=== PATIENT | male | born 1960 | race Caucasian/White ===

== ENCOUNTER 2023-04-18 09:08 | Emergency (ER) | payer OTHER ==
[2023-04-18 09:15] VITALS: RESP 16; BMI 28.0
[2023-04-18 11:08] LABS: BASO % 0.2 % (0-2.0); EOS % 0.4 % (0-4.5); HEMATOCRIT 43.1 % (35.4-49); HEMOGLOBIN 14.8 GM/dL (11.7-16.9); LYMPH % 16.3 % (8-40); MCH 30.6 pg (25.7-33.7); MCHC 34.3 g/dl (32.0-35.9); MEAN CELL VOLUME 89.3 fl (80-96); MONO % 8.6 % (3.8-10.2); NEUT % 74.5 % (42.8-82.8); PLATELET COUNT 181 10^3/uL (134-434); RBC 4.83 M/mm3 (4.00-5.60); RDW 13.7 % (11.9-15.9); WHITE BLOOD COUNT 6.2 K/mm3 (4.0-10.0)
[2023-04-18 11:11] LABS: PH,URINE 6.5 (5.0-8.0); URINE APPEARANCE CLEAR; URINE BILIRUBIN NEGATIVE (NEGATIVE); URINE COLOR YELLOW; URINE GLUCOSE (UA) NEGATIVE (NEGATIVE); URINE KETONE NEGATIVE (NEGATIVE); URINE LEUK ESTERASE NEGATIVE (NEGATIVE); URINE NITRITE NEGATIVE (NEGATIVE); URINE PROTEIN NEGATIVE (NEGATIVE); URINE UROBILINOGEN 0.2 mg/dL (0.2-1.0)
[2023-04-18 11:25] LABS: POTASSIUM 3.8 mmol/L (3.5-5.1)
[2023-04-18 11:27] LABS: CALCIUM 9.4 mg/dL (8.5-10.1)
[2023-04-18 11:28] LABS: ALBUMIN 4.1 g/dl (3.4-5.0); BLOOD UREA NITROGEN 18.8 mg/dL (7-18)
[2023-04-18 11:31] LABS: CREATININE 1.2 mg/dL (0.55-1.3)
[2023-04-18 11:33] LABS: BILIRUBIN,TOTAL 0.5 mg/dL (0.2-1)
[2023-04-18 14:11] VITALS: BP 138/69; PULSE 64; TEMP 98
== END 2023-04-18 14:15 | disposition home or self-care (01) ==
LOC: JER 09:08
DX: R33.9 Retention of urine, unspecified (principal); R10.30 Lower abdominal pain, unspecified; R39.15 Urgency of urination
CPT/HCPCS: 36415; 80053; 81003; 85025; 87086; 99283-25

== ENCOUNTER 2023-10-04 07:00 | Emergency (ER) | payer OTHER ==
[2023-10-04 07:09] VITALS: BMI 29.0
[2023-10-04] MEDS ORDERED: ACETAMINOPHEN INJECTION 100 ML IVPB ONE (08:14)
[2023-10-04] MEDS: ACETAMINOPHEN 1000 MG/100 ML BAG IVPB ONE (08:18)
[2023-10-04] MEDS: SODIUM CHLORIDE 1,000 ML IV STA (08:21)
[2023-10-04 08:27] LABS: BASO % 0.2 % (0-2.0); HEMATOCRIT 42.3 % (35.4-49); HEMOGLOBIN 14.5 GM/dL (11.7-16.9); LYMPH % 5.1 % (8-40); MCH 30.2 pg (25.7-33.7); MCHC 34.3 g/dl (32.0-35.9); MEAN CELL VOLUME 88.3 fl (80-96); MEAN PLT VOLUME 8.2 fl (7.5-11.1); NEUT % 86.7 % (42.8-82.8); PLATELET COUNT 157 10^3/uL (134-434); RBC 4.79 M/mm3 (4.00-5.60); RDW 13.4 % (11.9-15.9); WHITE BLOOD COUNT 9.2 K/mm3 (4.0-10.0)
[2023-10-04 08:45] LABS: POTASSIUM 4.1 mmol/L (3.5-5.1)
[2023-10-04 08:47] LABS: ALBUMIN 3.6 g/dl (3.4-5.0); CALCIUM 8.6 mg/dL (8.5-10.1)
[2023-10-04 08:48] LABS: BLOOD UREA NITROGEN 12.7 mg/dL (7-18)
[2023-10-04 08:50] LABS: CREATININE 1.1 mg/dL (0.55-1.3)
[2023-10-04 08:52] LABS: BILIRUBIN,TOTAL 0.5 mg/dL (0.2-1); TOT PROT 6.9 g/dl (6.4-8.2)
[2023-10-04 09:13] LABS: EPI CELLS 14 /uL (0-25.1); HYALINE CASTS 3 /uL (0-3.1); URINE APPEARANCE CLEAR; URINE BACTERIA 12 /uL (0-1359); URINE BILIRUBIN NEGATIVE (NEGATIVE); URINE COLOR YELLOW; URINE GLUCOSE (UA) NEGATIVE (NEGATIVE); URINE KETONE TRACE (NEGATIVE); URINE LEUK ESTERASE 1+ (NEGATIVE); URINE NITRITE NEGATIVE (NEGATIVE); URINE PROTEIN TRACE (NEGATIVE); URINE RBC 51 /uL (0-23.9); URINE UROBILINOGEN 0.2 mg/dL (0.2-1.0); URINE WBC 139 /uL (0-25.8)
[2023-10-04] MEDS ORDERED: CEFTRIAXONE 1 GM/50 ML BAG ONE (10:33)
[2023-10-04] MEDS: CEFTRIAXONE 1,000 MG in DEXTROSE 5%-WATER - 50 ML IVPB ONE (10:38)
[2023-10-04] MEDS ORDERED: IBUPROFEN 400 MG TABLET (FP) PO ONE (11:16)
[2023-10-04] MEDS: IBUPROFEN 400 MG TABLET (FP) PO ONE (11:27)
[2023-10-04 11:30] VITALS: BP 144/80; PULSE 72; RESP 16; TEMP 100.5
== END 2023-10-04 11:31 | disposition home or self-care (01) ==
LOC: JER 07:00
PROC: 3E03329 Introduction of Other Anti-infective into Peripheral Vein, Percutaneous Approach (ICD-10-PCS; principal; 2023-10-04)
PROC: 3E033NZ Introduction of Analgesics, Hypnotics, Sedatives into Peripheral Vein, Percutaneous Approach (ICD-10-PCS; 2023-10-04)
DX: N43.3 Hydrocele, unspecified (principal); N30.00 Acute cystitis without hematuria
CPT/HCPCS: 36415; 76870-TC; 80053; 81003; 85025; 87040; 87086; 99284-25; J0131

== ENCOUNTER 2023-10-04 21:08 | Inpatient (IN) | payer OTHER ==
[2023-10-04 21:18] VITALS: BMI 25.8
[2023-10-04] MEDS ORDERED: FAMOTIDINE 20 MG/50 ML IVPB 20 MG/50 ML MG IVPB ONE (21:49)
[2023-10-04] MEDS ORDERED: ONDANSETRON 4 MG/2 ML VIAL ONE (21:49)
[2023-10-04] MEDS ORDERED: ACETAMINOPHEN INJECTION 100 ML IVPB ONE (21:49)
[2023-10-04] MEDS: SODIUM CHLORIDE 0.9% 500 ML INFUS.BAG IV ONE (22:09)
[2023-10-04] MEDS: ACETAMINOPHEN 1000 MG/100 ML BAG IVPB ONE (22:09)
[2023-10-04] MEDS: FAMOTIDINE 20 MG/50 ML IVPB 20 MG/50 ML MG IVPB ONE (22:10)
[2023-10-04] MEDS: ONDANSETRON 4 MG/2 ML VIAL IVPUSH ONE (22:10)
[2023-10-04 22:19] LABS: HEMOGLOBIN 14.5 GM/dL (11.7-16.9); MCH 30.7 pg (25.7-33.7); MCHC 35.3 g/dl (32.0-35.9); MEAN PLT VOLUME 8.5 fl (7.5-11.1); PLATELET COUNT 137 10^3/uL (134-434); RBC 4.71 M/mm3 (4.00-5.60); RDW 13.6 % (11.9-15.9); WHITE BLOOD COUNT 10.8 K/mm3 (4.0-10.0)
[2023-10-04 22:21] LABS: EPI CELLS 21 /uL (0-25.1); HYALINE CASTS 0 /uL (0-3.1); URINE APPEARANCE CLEAR; URINE BACTERIA 18 /uL (0-1359); URINE BILIRUBIN NEGATIVE (NEGATIVE); URINE COLOR YELLOW; URINE GLUCOSE (UA) NEGATIVE (NEGATIVE); URINE KETONE NEGATIVE (NEGATIVE); URINE LEUK ESTERASE 1+ (NEGATIVE); URINE NITRITE NEGATIVE (NEGATIVE); URINE PROTEIN 1+ (NEGATIVE); URINE RBC 174 /uL (0-23.9); URINE WBC 104 /uL (0-25.8)
[2023-10-04 22:42] LABS: CALCIUM 8.4 mg/dL (8.5-10.1)
[2023-10-04 22:43] LABS: ALBUMIN 3.4 g/dl (3.4-5.0); BLOOD UREA NITROGEN 11.3 mg/dL (7-18)
[2023-10-04 22:47] LABS: BILIRUBIN,TOTAL 0.7 mg/dL (0.2-1); TOT PROT 6.6 g/dl (6.4-8.2)
[2023-10-04 23:33] LABS: OVALOCYTE OCCASIONAL; PLATELET ESTIMATE SLT DECREASE
[2023-10-05] MEDS ORDERED: SODIUM CHLORIDE 1,000 ML IV SCH (01:00)
[2023-10-05] MEDS ORDERED: ONDANSETRON 4 MG/2 ML VIAL IVPUSH PRN (01:12)
[2023-10-05] MEDS: SODIUM CHLORIDE 1,000 ML IV STA (01:53)
[2023-10-05] MEDS: ACETAMINOPHEN 1000 MG/100 ML BAG IVPB PRN ×2 (05:22→11:12)
[2023-10-05] MEDS: TAMSULOSIN HCL 0.4 MG CAP PO ONE (06:57)
[2023-10-05] MEDS: LACTATED RINGERS SOLUTION 1,000 ML/1,000 ML INFUS.BAG IV SCH (06:59)
[2023-10-05 07:54] LABS: HEMATOCRIT 38.1 % (35.4-49); MCH 30.2 pg (25.7-33.7); MCHC 34.2 g/dl (32.0-35.9); MEAN CELL VOLUME 88.3 fl (80-96); MEAN PLT VOLUME 8.9 fl (7.5-11.1); PLATELET COUNT 115 10^3/uL (134-434); POTASSIUM 3.7 mmol/L (3.5-5.1); RBC 4.32 M/mm3 (4.00-5.60); RDW 13.4 % (11.9-15.9); WHITE BLOOD COUNT 7.3 K/mm3 (4.0-10.0)
[2023-10-05 08:02] LABS: CALCIUM 7.9 mg/dL (8.5-10.1)
[2023-10-05 08:03] LABS: ALBUMIN 2.8 g/dl (3.4-5.0); BLOOD UREA NITROGEN 11.6 mg/dL (7-18); MAGNESIUM 1.8 mg/dL (1.8-2.4)
[2023-10-05 08:06] LABS: BILIRUBIN,TOTAL 0.6 mg/dL (0.2-1); PHOSPHOROUS 1.4 mg/dL (2.5-4.9); TOT PROT 5.7 g/dl (6.4-8.2)
[2023-10-05] MEDS: TAMSULOSIN HCL 0.4 MG CAP PO SCH (09:33)
[2023-10-05 09:47] LABS: ANISOCYTOSIS 0; HELMET CELLS 0; HOWELL-JOLLY BODIES 0; MACROCYTOSIS 0; OVALOCYTE 0; ROULEAU 0; SICKELED CELLS 0; TARGET CELLS 0; TEAR DROP CELLS 0; TOXIC GRANULATION 0
[2023-10-05] MEDS: NAPH,MB-DB/K PH,MBDB POWDER PACKET PO ONE (16:31)
[2023-10-06] MEDS: ACETAMINOPHEN 325 MG TABLET (FP) PO ONE (05:59)
[2023-10-06 08:36] LABS: BASO % 0.2 % (0-2.0); EOS % 0.1 % (0-4.5); HEMATOCRIT 38.1 % (35.4-49); HEMOGLOBIN 13.3 GM/dL (11.7-16.9); LYMPH % 8.1 % (8-40); MCH 30.5 pg (25.7-33.7); MCHC 34.8 g/dl (32.0-35.9); MEAN CELL VOLUME 87.8 fl (80-96); MEAN PLT VOLUME 8.6 fl (7.5-11.1); MONO % 7.7 % (3.8-10.2); NEUT % 83.9 % (42.8-82.8); PLATELET COUNT 126 10^3/uL (134-434); RBC 4.34 M/mm3 (4.00-5.60); RDW 13.6 % (11.9-15.9); WHITE BLOOD COUNT 7.8 K/mm3 (4.0-10.0)
[2023-10-06 09:02] LABS: POTASSIUM 4.1 mmol/L (3.5-5.1)
[2023-10-06 09:07] LABS: BLOOD UREA NITROGEN 13.2 mg/dL (7-18)
[2023-10-06 09:10] LABS: CREATININE 0.9 mg/dL (0.55-1.3); PHOSPHOROUS 2.2 mg/dL (2.5-4.9)
[2023-10-06] MEDS ORDERED: ACETAMINOPHEN 325 MG TABLET (FP) PO PRN (09:38)
[2023-10-06] MEDS ORDERED: ENOXAPARIN NA (PORCINE) 40 MG/0.4 ML DISP.SYRIN SQ SCH (10:00)
[2023-10-06] MEDS: MEROPENEM 1 GM in DEXTROSE 5%-WATER 100 ML IVPB SCH (18:17)
[2023-10-06] MEDS: DOXYCYCLINE INJECTION 100 MG in DEXTROSE 5%-WATER 100 ML IVPB SCH (21:27)
[2023-10-07] MEDS: ACETAMINOPHEN 325 MG TABLET (FP) PO ONE (08:50)
[2023-10-07 09:16] LABS: BASO % 0.1 % (0-2.0); EOS % 0.4 % (0-4.5); HEMATOCRIT 38.8 % (35.4-49); HEMOGLOBIN 13.8 GM/dL (11.7-16.9); LYMPH % 13.4 % (8-40); MCH 30.7 pg (25.7-33.7); MCHC 35.6 g/dl (32.0-35.9); MEAN CELL VOLUME 86.4 fl (80-96); MEAN PLT VOLUME 8.6 fl (7.5-11.1); MONO % 7.5 % (3.8-10.2); NEUT % 78.6 % (42.8-82.8); PLATELET COUNT 158 10^3/uL (134-434); RBC 4.49 M/mm3 (4.00-5.60); RDW 13.8 % (11.9-15.9); WHITE BLOOD COUNT 6.9 K/mm3 (4.0-10.0)
[2023-10-08 07:07] VITALS: RESP 18
[2023-10-08] MEDS: ACETAMINOPHEN 325 MG TABLET (FP) PO PRN (08:20)
[2023-10-09 09:53] LABS: HEMOGLOBIN 14.2 GM/dL (11.7-16.9); MCH 30.9 pg (25.7-33.7); MCHC 35.5 g/dl (32.0-35.9); MEAN CELL VOLUME 87.1 fl (80-96); MEAN PLT VOLUME 8.3 fl (7.5-11.1); PLATELET COUNT 191 10^3/uL (134-434); RBC 4.59 M/mm3 (4.00-5.60); RDW 13.6 % (11.9-15.9); WHITE BLOOD COUNT 8.3 K/mm3 (4.0-10.0)
[2023-10-09 10:11] LABS: POTASSIUM 4.1 mmol/L (3.5-5.1)
[2023-10-09 10:13] LABS: ALBUMIN 2.9 g/dl (3.4-5.0); CALCIUM 8.8 mg/dL (8.5-10.1)
[2023-10-09 10:14] LABS: BLOOD UREA NITROGEN 15.5 mg/dL (7-18); MAGNESIUM 2.1 mg/dL (1.8-2.4)
[2023-10-09 10:16] LABS: PHOSPHOROUS 2.7 mg/dL (2.5-4.9)
[2023-10-09 10:18] LABS: BILIRUBIN,TOTAL 0.4 mg/dL (0.2-1); TOT PROT 6.2 g/dl (6.4-8.2)
[2023-10-10] MEDS: ACETAMINOPHEN 325 MG TABLET (FP) PO PRN (01:37)
[2023-10-10 09:09] LABS: POTASSIUM 4.2 mmol/L (3.5-5.1)
[2023-10-10 09:12] LABS: HEMATOCRIT 39.7 % (35.4-49); HEMOGLOBIN 13.8 GM/dL (11.7-16.9); MCH 30.4 pg (25.7-33.7); MCHC 34.7 g/dl (32.0-35.9); MEAN CELL VOLUME 87.5 fl (80-96); MEAN PLT VOLUME 7.9 fl (7.5-11.1); PLATELET COUNT 214 10^3/uL (134-434); RBC 4.54 M/mm3 (4.00-5.60); RDW 13.5 % (11.9-15.9); WHITE BLOOD COUNT 9.2 K/mm3 (4.0-10.0)
[2023-10-10 09:32] LABS: ALBUMIN 2.8 g/dl (3.4-5.0); BLOOD UREA NITROGEN 15.6 mg/dL (7-18); CALCIUM 8.5 mg/dL (8.5-10.1)
[2023-10-10 09:33] LABS: BILIRUBIN,TOTAL 0.4 mg/dL (0.2-1); TOT PROT 6.2 g/dl (6.4-8.2)
[2023-10-10 09:34] LABS: CREATININE 0.8 mg/dL (0.55-1.3)
[2023-10-10 11:27] VITALS: TEMP 98.9
[2023-10-10 15:19] VITALS: BP 119/72; PULSE 70
== END 2023-10-10 18:42 | disposition home or self-care (01) | DRG 720 ==
LOC: JER 21:08 → JERBED 10-05 00:29 → J6S 10-05 04:58
PROVIDERS: ADMIT Internal Medicine; ATTEND Internal Medicine
DX: A41.9 Sepsis, unspecified organism (principal); N45.1 Epididymitis; N40.0 Benign prostatic hyperplasia without lower urinary tract symptoms; N43.3 Hydrocele, unspecified; D69.6 Thrombocytopenia, unspecified; E83.39 Other disorders of phosphorus metabolism; R73.9 Hyperglycemia, unspecified; E87.1 Hypo-osmolality and hyponatremia
CPT/HCPCS: 0241U-QW; 36415; 74176-TC; 76870-TC; 80048; 80053; 81003; 82962; 83036; 83735; 84100; 85025; 85027; 87040; 87086; 93005; 93010; 99285-25; J0131